=== PATIENT | female | born 1945 | race American Indian/Alaskan Native ===

== ENCOUNTER 2016-11-24 19:21 | Emergency (ER) | payer MEDICARE ==
[2016-11-24 20:43] LABS: Basophils % (Auto) 0.6 % (0.0-1.8); Eosinophils % (Auto) 0.1 % (0.0-4.3); Hemoglobin 11.7 gm/dl (10.1-14.3); Mean Corpuscular HGB Conc 31 % (30-34); Mean Corpuscular Volume 79 fl (79-97); Platelet Count 189 K/mm3 (140-440); Red Blood Count 4.81 M/mm3 (3.65-5.03); White Blood Count 6.1 K/mm3 (4.5-11.0)
[2016-11-24 20:57] LABS: Calcium 9.4 mg/dL (8.4-10.2); Chloride 101.6 mmol/L (98-107); Potassium 4.6 mmol/L (3.6-5.0)
[2016-11-24 21:09] LABS: Partial Thromboplastin Time 30.6 Sec. (24.2-36.6)
[2016-11-24 21:10] LABS: Mean Corpuscular Hemoglobin 24 pg (28-32); Red Cell Distribution Width 20.5 % (13.2-15.2)
[2016-11-25] MEDS ORDERED: NACL 0.9% IV ONE (02:22)
[2016-11-25] MEDS ORDERED: DDAVP IV ONE (02:22)
--- NOTE | 2016-11-25 02:48 | Emergency Department Report ---
HPI - General Chief Complaint: Wound/Laceration Time Seen by Provider: 11/25/16 02:24 - HPI HPI: Room 6 The patient is a 71-year-old female presenting with a chief complaint of bleeding from left upper extremities fistula. The patient states when she got up this morning and after placing her shirt on she believes chest was scratched her left upper extremity fistula and began bleeding. The patient states she applied a dressing and held pressure but the bleeding continued every time she removed the dressing. The patient states she went to dialysis and receives dialysis but when they removed the dressing the bleeding continued so the dressing was replaced at the dialysis center with a pressure dressing. Patient then went home but was then convinced by family to come to the hospital for evaluation. The patient's pressure dressing is still in place Location: Left upper extremity fistula Duration: Began this morning Quality: Bleeding Severity: Moderate Modifying factors: [see above] Context: [see above] Mode of transportation: [not driving] ED Past Medical Hx - Past Medical History Previous Medical History?: Yes Hx Hypertension: Yes Hx Renal Disease: Yes ([id number]) Additional medical history: hyperlipidemia - Surgical History Past Surgical History?: Yes Additional Surgical History: hysterectomy april 2016-not sure if partial or total, R knee replacement august 2016 - Family History Family history: no significant - Social History Smoking Status: Never Smoker Substance Use Type: None ED Review of Systems ROS: Stated complaint: ACCESS PORT BLEEDING Other details as noted in HPI Comment: All other systems reviewed and negative Constitutional: denies: chills, fever Eyes: denies: eye pain, eye discharge, vision change ENT: denies: ear pain, throat pain Respiratory: denies: cough, shortness of breath, wheezing Cardiovascular: denies: chest pain, palpitations Endocrine: no symptoms reported Gastrointestinal: denies: abdominal pain, nausea, diarrhea Genitourinary: denies: urgency, dysuria, discharge Musculoskeletal: denies: back pain, joint swelling, arthralgia Skin: denies: rash, lesions Neurological: denies: headache, weakness, paresthesias Psychiatric: denies: anxiety, depression Hematological/Lymphatic: easy bleeding Physical Exam - Physical Exam Vital Signs: Vital Signs 11/24/16 11/25/16 19:45 01:47 Temperature 98.1 F 98.6 F Pulse Rate 81 84 Respiratory 18 19 Rate Blood Pressure 154/75 Blood Pressure 177/78 [Right] O2 Sat by Pulse 100 100 Oximetry Physical Exam: GENERAL: The patient is well-developed well-nourished female sleeping on stretcher not appearing to be in acute distress. [] HEENT: Normocephalic. Atraumatic. Extraocular motions are intact. Patient has moist mucous membranes. NECK: Supple. Trachea midline CHEST/LUNGS: Clear to auscultation. There is no respiratory distress noted. HEART/CARDIOVASCULAR: Regular. There is no tachycardia. There is no gallop rub or murmur. ABDOMEN: Abdomen is soft, nontender. Patient has normal bowel sounds. There is no abdominal distention. SKIN: There is no rash. There is no edema. There is no diaphoresis. Left upper extremities or dressing in place. No evidence of bleeding through NEURO: The patient is awake, alert, and oriented. The patient is cooperative. The patient has normal speech MUSCULOSKELETAL: There is no evidence of acute injury. ED Course Vital Signs 11/24/16 11/25/16 19:45 01:47 Temperature 98.1 F 98.6 F Pulse Rate 81 84 Respiratory 18 19 Rate Blood Pressure 154/75 Blood Pressure 177/78 [Right] O2 Sat by Pulse 100 100 Oximetry - Reevaluation(s) Reevaluation #1: 11/25/16 04:19 Patient's left upper extremity dressing taken down after DDAVP completed infusion. There is no active bleeding. As a precaution hemostat was placed back over the fistula covered by a light gauze dressing ED Medical Decision Making - Lab Data Result diagrams: 11/24/16 20:23 11/24/16 20:23 Laboratory Tests 11/24/16 11/24/16 11/24/16 20:23 20:23 20:23 WBC 6.1 RBC 4.81 Hgb 11.7 Hct 38.0 MCV 79 MCH 24 L MCHC 31 RDW 20.5 H Plt Count 189 Lymph % (Auto) 14.0 [place] % (Auto) 3.3 Eos % (Auto) 0.1 Baso % (Auto) 0.6 Lymph # 0.9 L [place] # 0.2 Eos # 0.0 Baso # 0.0 Seg Neutrophils % 82.0 H Seg Neutrophils # 5.0 PT 13.7 INR 1.00 APTT 30.6 Sodium 143 Potassium 4.6 Chloride 101.6 Carbon Dioxide 25 Anion Gap 21 BUN 16 Creatinine 5.0 H Estimated GFR 9 BUN/Creatinine Ratio 3 Glucose 119 H Calcium 9.4 - Differential Diagnosis bleeding fistula Critical care attestation.: If time is entered above; I have spent that time in minutes in the direct care of this critically ill patient, excluding procedure time. ED Disposition Clinical Impression: Hemorrhage of surgically-created arteriovenous fistula Disposition: TO HOME OR SELFCARE Is pt being admited?: No Does the pt Need Aspirin: No Condition: Stable Additional Instructions: Return to the emergency department immediately should you develop worsening symptoms, fever, inability to tolerate food or liquid or any other concerns. Referrals: PRITI MATHIS MD [Primary Care Provider] - 3-5 Days Time of Disposition: 04:20
[2016-11-25 05:05] VITALS: BP 157/70
== END 2016-11-25 04:45 | disposition home or self-care (01) ==
LOC: ED 19:21
DX: T82.838A Hemorrhage due to vascular prosthetic devices, implants and grafts, initial encounter (principal); I10 Essential (primary) hypertension; N28.9 Disorder of kidney and ureter, unspecified; Z91.013 Allergy to seafood
CPT/HCPCS: 36415; 80048; 85025; 85610; 85730; 96365; 99283; A6021; J2597